=== PATIENT | female | born 1970 | race Caucasian/White ===

== ENCOUNTER 2017-08-19 08:56 | Day surgery (SDC) | payer MEDICAID, OTHER ==
[~2017-08-19] VITALS: Ht 162.6 cm; Wt 69.4 kg
[2017-08-19] MEDS ORDERED: SIMETHICONE 40 MG/0.6 ML ML ONE (09:21)
[2017-08-19] MEDS ORDERED: MEPERIDINE HCL/PF 100 MG/ML AMP ONE (09:21)
[2017-08-19 09:40] LABS: HCG,QUAL RESULT NEGATIVE (NEGATIVE)
[2017-08-19] MEDS: MIDAZOLAM HCL 5 MG/5 ML VIAL ONE ×4 (10:36→10:43)
[2017-08-19 14:10] VITALS: BP_SYST 143
== END 2017-08-19 11:35 | disposition home or self-care (01) ==
LOC: SDS 08:56 → SMU 08:56 → SDS 11:35
PROVIDERS: ATTEND Internal Medicine Gastroenterology
DX: K29.70 Gastritis, unspecified, without bleeding (principal); K44.9 Diaphragmatic hernia without obstruction or gangrene; K21.9 Gastro-esophageal reflux disease without esophagitis; M19.90 Unspecified osteoarthritis, unspecified site; E03.9 Hypothyroidism, unspecified; E11.9 Type 2 diabetes mellitus without complications; M06.9 Rheumatoid arthritis, unspecified; M35.00 Sjogren syndrome, unspecified; Z87.891 Personal history of nicotine dependence; Z79.899 Other long term (current) drug therapy; I11.0 Hypertensive heart disease with heart failure; I50.9 Heart failure, unspecified
CPT/HCPCS: 36415; 43239; 82962; 84703; 87081; 88305; 88312; 88313; J2175; J2250; J7030